=== PATIENT | female | born 1965 | race Caucasian/White ===

== ENCOUNTER → 2018-09-16 17:42 | Outpatient (CLI) | payer OTHER, SELFPAY ==
--- NOTE | 2018-09-16 11:10 | EMB_PTH ---
PATIENT: EJ CHILEL LOC: [facility] U#:[id number] AGE/SX: 59/F ROOM: RE09/16/[address]: Dr. Oj Nguyen MD : 1965 BED: DIS: SPEC #: [id number] RECD: 09/16/18 17:30 STATUS: ESRGE LAZARO #: [id number] TJ: 09/16/18 11:[address]: Oj Nguyen DEPT: SURGICAL PATHOLOGY RECD BY: Chandler Dewey ENTERED: 09/17/18 11:55 SP TYPE: ENDOM BX/C FITO DR: Dr. Oj Medina MD Tissues: Endometrium, NOS Procedures: Surgery Specimen Level IV HEADER OPERATION: Endometrial biopsy PRE-OP DIAGNOSIS: Abnormal uterine bleeding TISSUE SUBMITTED: Endometrial biopsy MICROSCOPIC DIAGNOSIS Endometrium, biopsy: Strips of benign superficial endocervix. Rare strips of benign superficial endometrium. See comment. AM:stefano 09/18/18 COMMENT The specimen primarily consists of mucous. Clinical correlation is suggested. MICROSCOPIC DESCRIPTION Slides are reviewed. GROSS DESCRIPTION Received in fixative is one container labeled with the patient's name and designated endometrial biopsy. The specimen consists of multiple irregular fragments of light to dark mcguire soft tissue that in aggregate measure 2 x 2 x 0.1 cm. The specimen is totally submitted in one cassette. / AM:stefano 09/17/18 TC:5 CPT: 23094
[2018-09-22 19:50] LABS: HPV Reflexed? NOT INDICATED
== END ==
PROVIDERS: Family Provider Family Medicine; PCP Family Medicine; Visit Provider Obstetrics & Gynecology
DX: Z12.4 Encounter for screening for malignant neoplasm of cervix (principal); N93.9 Abnormal uterine and vaginal bleeding, unspecified; N85.01 Benign endometrial hyperplasia
CPT/HCPCS: 87624; 88175; 88305; G0145

== ENCOUNTER → 2022-10-01 | Outpatient (CLI) | payer OTHER, SELFPAY ==
[2022-10-01 18:20] LABS: Hematocrit 43.1 % (37-47); Hemoglobin 14.1 g/dL (12.0-15.0); Mean Corp Hgb Conc 32.7 g/dL (32-36); Mean Corpuscular Hgb 30.6 pg (27.0-32.0); Mean Corpuscular Volume 93.5 fL (81-99); Mean Platelet Vol. 10.9 fl (6.2-12.0); Platelet Count 226 K/mm3 (150-450); RBC Distribution Width CV 12.2 % (11.6-14.6); RBC Distribution Width SD 42.1 fl (35.1-43.9); Red Blood Count 4.61 M/mm3 (4.2-5.4); White Blood Count 4.7 K/mm3 (4.4-11.0)
[2022-10-01 18:35] LABS: CRP < 2.90 mg/L (0.0-3.0)
[2022-10-01 18:40] LABS: Erythrocyte Sedimentation Rate 8 mm/hr (0-30)
== END | disposition home or self-care (01) ==
LOC: MTLAB 14:24
PROVIDERS: PCP Family Medicine; Referring Provider Internal Medicine Gastroenterology; Visit Provider Internal Medicine Gastroenterology
DX: K51.90 Ulcerative colitis, unspecified, without complications (principal)
CPT/HCPCS: 36415; 85027; 85652; 86140